=== PATIENT | female | born 1980 | race Caucasian/White ===

== ENCOUNTER 2023-07-10 11:36 | Emergency (ER) | payer OTHER, SELFPAY ==
[2023-07-10 11:41] VITALS: BP 136/85; PULSE 106; RESP 20; TEMP 36.2; O2SAT 99
== END 2023-07-10 13:02 | disposition left against medical advice (07) ==
PROVIDERS: PCP Family Medicine
DX: N92.0 Excessive and frequent menstruation with regular cycle (principal)
CPT/HCPCS: 99199

== ENCOUNTER 2023-08-08 15:35 | Emergency (ER) | payer OTHER, SELFPAY ==
--- NOTE | ~2023-08-08 | CT_ITS ---
EXAMINATION: CT abdomen pelvis w con INDICATION: Abdominal pain TECHNIQUE: Computed tomographic images of the abdomen and pelvis were obtained after the administrati on of 100 cc of Omnipaque 350 intravenous contrast. The dose-length product (DLP) was 375.06 mGy-cm. Automated exposure control and iterative reconstruction technique were employed. COMPARISON: 09/26/2008 FINDINGS: Minimal dependent atelectasis is present in the lung bases. The heart size is normal. The l iver, spleen, pancreas, gallbladder, and adrenal glands are normal. The kidneys are unremarkable. No pathologically enlarged abdominal or pelvic lymph nodes are identified. No free intraperitoneal gas o r evidence of bowel obstruction. Surgical clips near the cecum likely reflect prior appendectomy. IMPRESSION: 1. No CT correlate for the patient's symptoms. Reviewed, dictated and finalized at location F.
[2023-08-08 15:43] VITALS: BP 143/93; PULSE 96; RESP 17; TEMP 36.9; O2SAT 98
[2023-08-08 15:56] LABS: Basophils Absolute Auto 0.1 K/mm3 (0.0-0.1); Basophils Percent Auto 0.6 % (0.2-1.2); Eosinophils Absolute Auto 0.6 K/mm3 (0-0.3); Eosinophils Percent Auto 3.6 % (0-4.4); Hematocrit 40.8 % (37.0-47.0); Hemoglobin 13.2 g/dL (12.0-15.0); Immature Granulocyte Absolute 0.09 K/mm3 (0.00-0.031); Immature Granulocyte Percent A 0.6 % (0-0.5); Lymphocytes Absolute Auto 4.67 K/mm3 (0.9-3.2); Lymphocytes Percent Auto 28.9 % (18.3-44.2); Mean Corpuscular HGB Conc 32.4 g/dl (32-36); Mean Corpuscular Hemoglobin 31.7 pg (26-34); Mean Corpuscular Volume 98.1 fl (80-100); Mean Platelet Volume 9.1 fl (7.4-10.4); Monocytes Percent Auto 6.3 % (2.6-8.5); Neutrophils Absolute Auto 9.7 K/mm3 (1.3-6.7); Platelet Count Result 410 k/mm3 (150-375); Red Blood Count 4.16 M/mm3 (4.2-5.4); Red Cell Distribution Width 13.2 % (11.5-14.5); White Blood Count 16.2 K/mm3 (4.5-10.0)
[2023-08-08 16:03] LABS: Alanine Aminotransferase 16 U/L (6-35); Albumin Level 4.7 g/dL (3.5-5.1); Alkaline Phosphatase 110 U/L (38-126); Anion Gap 7 mmol/L (8-16); Aspartate Amino Transferase 24 U/L (14-36); Bilirubin,Total 0.4 mg/dL (0.2-1.3); Blood Urea Nitrogen 10 mg/dL (7-17); Calcium 9.4 mg/dL (8.4-10.2); Carbon Dioxide 25 mmol/L (22-30); Chloride 109 mmol/L (98-107); Estimated CRCL calculation 70 ml/min; Estimated Glomerular Filt Rate > 60; Glucose 101 mg/dL (65-110); Lipase 92 U/L (23-300); Potassium 3.4 mmol/L (3.4-5.0); Sodium 141 mmol/L (137-145)
[2023-08-08 16:19] LABS: Appearance Urine Cloudy (Clear); Bacteria Urine Rare /hpf; Bilirubin Urine Negative (Negative); Blood Urine 3+ (Negative); Calcium Oxalate Crystals Urine Present /hpf; Color Urine Yellow (Yellow); Glucose Urine UA Negative (Negative); Ketones Urine Trace mg/dL (Negative); Leukocyte Esterase Ur Negative LEU/UL (Negative); Need Manual Microscopic Reviewed; Nitrate Urine Negative (Negative); Non Pathogenic Casts 0-2; Protein Urine Trace mg/dL (Negative); RBC Urine >100 /hpf (0-2); Squamous Epithelial Cell Urine Few /hpf (Few); Urobilinogen Urine 0.2 mg/dL (<2.0); pH Urine 5.5 (5.0-9.0)
[2023-08-08 16:20] LABS: Specific Grav Ur 1.038 (1.001-1.035)
[2023-08-08 16:21] LABS: Add Urine Microscopic? YES
--- NOTE | 2023-08-08 16:49 | ED.ABDPAIN ---
HPI - Abdominal Pain General Chief Complaint: Abdominal Pain Stated Complaint: abdominal cramping Time Seen by Provider: 08/08/23 16:46 Source: patient and family Mode of arrival: ambulatory Limitations: no limitations History of Present Illness HPI narrative: 43 years old white female came to the emergency room with abdominal pain that started 2 hours prior to arrival. Patient started her menstrual cycle 2 days ago. History of heavy vaginal bleeding scheduled for hysterectomy by Dr. MORRIS September 04. Patient been having abdominal pain for 6 months. History of bilateral tubal ligation, appendectomy, does not take medicine at home, she smokes cigarettes, denies drug or alcohol abuse Related Data Patient : No Home Medications Medication Instructions Recorded Confirmed No Home Medications 06/02/23 06/02/23 Allergies Allergy/AdvReac Type Severity Reaction Status Date / Time ibuprofen AdvReac Mild Diarrhea Verified 06/17/23 14:43 Review of Systems Review of Systems: All systems reviewed & are unremarkable except as noted in HPI and below PMFSH Surgical History Surgical History H/O tubal ligation Hx of appendectomy Hx of tonsillectomy Family History Family History Grandparent Diabetes mellitus Mother Heart disease Father Hypertension Social History Social History Smoking status: Current every day smoker Alcohol intake: current Alcohol use details: occasional Substance use: never Lack of Transportation: No Lack of Food: Never True Current Housing: I Have Housing Concerned About Future Housing: No Difficulty Paying Gas/Electric Bills: No Difficulty Paying for Meds: YES Currently Unemployed: YES Education: High School Diploma/GED Difficulty w/ Childcare or Family Care: No Living arrangements: with family Occupation/Education: occupation Additional occupation/education comments: door dasher Gender identity (if verbalized by the patient): Female Sexual Orientation (if Verbalized by the Patient): Straight or Heterosexual Exam Narrative: General appearance: Well-developed, well-nourished Skin: Normal color Head: Normocephalic, nontraumatic Eyes: Clear conjunctiva ENT: Oropharynx normal, ears normal, nose normal Neck: Supple, nontender Chest and respiratory: Airway patent, no respiratory distress, no accessory muscle use Heart: Regular rate/rhythm Abdomen: Soft, severe diffuse abdominal pain with guarding , no organomegaly, quiet bowel sounds Vascular: Normal peripheral pulses, normal capillary refill. Musculoskeletal: Normal range of motion, nontender back Neurologic: Alert and oriented ?3, IRRIGATION SPECIALIST is normal as tested, no gross motor deficit Course Reevaluation(s) Reevaluation #1: Patient had some improvement after Dilaudid 0.5 mg IV twice. Date: 08/08/23 Time: 18:38 Vital Signs Vital signs: Vital Signs Temperature 36.9 C 08/08/23 15:43 Pulse Rate 96 08/08/23 15:43 Respiratory Rate 17 08/08/23 15:43 Blood Pressure 143/93 H 08/08/23 15:43 Pulse Oximetry 98 08/08/23 15:43 Oxygen Delivery Room Air 08/08/23 15:43 Temperature 36.9 C 08/08/23 15:43 Pulse Rate 96 08/08/23 15:43 Respiratory Rate 17 08/08/23 15:43 Blood Pressure 143/93 H 08/08/23 15:43 Pulse Oximetry 98 08/08/23 15:43 Oxygen Delivery Room Air 08/08/23 15:43 MDM - Abdominal Pain MDM Narrative Medical decision making narrative: Patient presents with generalized abdominal pain which started 6 months ago, sched
[2023-08-08] MEDS: SODIUM CHLORIDE 0.9% IV 1,000 ML 999 ML IV CONT (17:14)
[2023-08-08] MEDS: ONDANSETRON INJ 4 MG/2 ML VIAL IV PUSH (17:14)
[2023-08-08] MEDS: HYDROmorphone HCL INJ (*CRX) 1 MG/ML SYR 0.5 MG IV PUSH ×2 (17:14→18:05)
[2023-08-08] MEDS: KETOROLAC 30 MG/ML VIAL (*BKC) IV PUSH (18:48)
[2023-08-08 18:51] VITALS: BP 128/84; PULSE 85; RESP 18; O2SAT 97
== END 2023-08-08 19:26 | disposition home or self-care (01) ==
LOC: ANHED 16:49
PROVIDERS: Emergency Provider Emergency Medicine; PCP Student in an Organized Health Care Education/Training Program
DX: R10.84 Generalized abdominal pain (principal); N94.6 Dysmenorrhea, unspecified; F17.200 Nicotine dependence, unspecified, uncomplicated
CPT/HCPCS: 36415; 74177; 80053; 81001; 83690; 85025; 87077; 87086; 87088; 96361; 96374; 96375; 96376; 99284; J1170; J1885; J2405; J7030; Q9967

== ENCOUNTER 2023-08-29 09:40 | Outpatient (CLI) | payer OTHER, SELFPAY | END 2023-08-29 09:41 | disposition home or self-care (01) | LOC: ANHSURGERY 09:45 | PROVIDERS: Visit Provider Student in an Organized Health Care Education/Training Program | DX: N93.9 Abnormal uterine and vaginal bleeding, unspecified (principal); Z01.818 Encounter for other preprocedural examination | CPT/HCPCS: 36415; 86850; 86900; 86901 ==

== ENCOUNTER 2023-09-04 02:20 | Day surgery (SDC) | payer OTHER, SELFPAY ==
[2023-08-25 16:25] VITALS: BMI 25.2
--- NOTE | 2023-08-25 16:52 | PC.NURSE ---
Report to the Outpatient Waiting Room, entrance under the green pavilion located off [facility], at 1000 on 09-04-23. Planned Procedure Time: 1200. Time changes happen often and if your time is changed the preop area will call you the afternoon before. - You and your visitor will be asked to self-screen and do not enter if you have any COVID symptoms. - A mask is optional within the hospital at this time. Patients may have clear liquids (water, carbonated beverages, clear teas, apple juice) until 3 hours prior to surgery with a maximum of 20 ounces. 0900 - No food from midnight until time of surgery - Infants may have breast milk until 4 hours before surgery, formula 6 hours prior to surgery. - Children will be allowed to drink immediately following surgery. If applicable, please bring a bottle or sippy cup to assist with drinking. Juice, water, soda, and popsicles are readily available. For infants on formula, please bring formula the day of surgery. Pacifiers are allowed. Take the following medications with a SIP of water the morning of surgery: Tylenol if needed DO NOT STOP ANY OF YOUR OTHER PRESCRIPTION MEDICATIONS PRIOR TO SURGERY ?EXCEPT THE FOLLOWING Medications to discontinue per physician: N/A Please no make-up, nail sudanese, hairspray, perfume, deodorant, or body powder the day of surgery. No jewelry (including any body piercings) or valuables the day of surgery, leave them at home. Please take a shower or bath the night before, or the morning of, surgery with an antibacterial soap. Wear comfortable, loose fitting clothing. Children are encouraged to wear pajamas. - Jewelry must be removed prior to entering the operating room. Rings and piercings that are not removed may be cut off. - The hospital will not accept responsibility for valuables. - Please leave all valuables, including medications, at home the day of surgery. If you are going home after surgery, a licensed coach driver must drive you home. - NO public transportation without another adult if you receive anesthesia. - We recommend that an adult stay with you for 24 hours following discharge. - We also recommend that you do not drive, make important decision, drink alcoholic beverages, or take any drugs that were not prescribed by your health care provider for at least 24 hours after your discharge time. For Pediatric surgeries, we recommend two adults accompany the child home. Follow any additional instructions given to you from your surgeon. If you or anyone in your household have experienced Covid symptoms in the past week, please notify your surgeon or the nurse liaison at the phone number below for possible testing. Telephone instructions given to Cheryl Saab and asked if any additional questions and then verbalized understanding. Patient advised to call surgeon office or pre surgery nurse liaison [phone] if any additional questions.
--- NOTE | 2023-09-03 13:26 | PM.IMHP ---
H&P: HPI History of Present Illness Date/Time: 09/03/23 13:26 Chief Complaint: Abnormal Narrative: 43-year-old female who presents for robotic assisted hysterectomy for abnormal uterine bleeding and pelvic pain.? Patient complaining of pelvic pain and associated heavy menses since her tubal ligation.? Patient has tried multiple forms of hormonal contraception in the past.? Patient is interested in hysterectomy Review of Systems Cardiovascular: Cardiovascular: Denies chest pain, Denies leg edema, Denies palpitations, Denies dyspnea and Denies dyspnea on exertion Respiratory: Respiratory: Denies cough, Denies dyspnea and Denies dyspnea on exertion Gastrointestinal: Gastrointestinal: Denies abdominal pain, Denies constipation, Denies diarrhea, Denies nausea and Denies vomiting Genitourinary: Genitourinary: Denies hematuria, Denies urinary frequency, Denies dysuria, Denies pelvic pain, Denies urinary incontinence and Denies vaginal discharge Neurologic: Reports system reviewed and no additional complaints, except as documented Psychiatric: Psychiatric: Reports no additional psychiatric complaints Endocrine: Endocrine: Denies palpitations PMFSH Surgical History Surgical History H/O tubal ligation Hx of appendectomy Hx of tonsillectomy Family History Family History Grandparent Diabetes mellitus Mother Heart disease Father Hypertension Social History Social History Smoking packs per day: 0.5 Smoking cigarettes per day: 10.0 Years smoked: 13 Smoking pack-years: 6.50 Smoking status: Current every day smoker Tobacco type: cigarettes Second hand tobacco smoke exposure: Yes Alcohol intake: current Alcohol use details: occasionally Substance use: never Substance use type: does not use Lack of Transportation: No Lack of Food: Never True Current Housing: I Have Housing Concerned About Future Housing: No Difficulty Paying Gas/Electric Bills: No Difficulty Paying for Meds: YES Currently Unemployed: YES Education: High School Diploma/GED Difficulty w/ Childcare or Family Care: No Living arrangements: with family Occupation/Education: occupation Additional occupation/education comments: door dasher Gender identity (if verbalized by the patient): Female Sexual Orientation (if Verbalized by the Patient): Straight or Heterosexual Spiritual care concerns: No Meds Home Medications and Allergies Home Medications Medication Instructions Recorded Confirmed Type acetaminophen 325 mg capsule 650 mg PO Q4-6H PRN Pain (Scale 08/25/23 08/25/23 History (Tylenol) Score 1-3) diphenhydramine HCl 50 mg capsule 50 mg PO DAILY PRN hay fever 08/25/23 08/25/23 History Allergies Allergy/AdvReac Type Severity Reaction Status Date / Time latex Allergy Mild Rash Verified 08/25/23 16:21 ibuprofen AdvReac Mild Diarrhea Verified 06/17/23 14:43 Exam Const: General: no acute distress Eyes: EOM: EOMs intact bilaterally Neck: Neck: supple Thyroid: thyroid normal Chest: Breast/axilla inspection: normal inspection of the breasts Breast/axilla palpation: normal palpation of the breasts, normal palpation of the axillae and no axillary lymphadenopathy Resp: Effort & Inspection: normal respiratory effort Auscultation: clear to auscultation bilaterally Cardio: Rate: regular rate Rhythm: regular rhythm GI: Inspection: non-distended GI Palp: Yes Soft to palpation, No Tenderness to palpation present (GI) and No Guarding due to palpation present (GI) Auscultation: normal bowel sounds : General: No bladder normal to palpation External Female Exam: normal external appearance Speculum Exam - Vagina: normal vaginal discharge and No vaginal bleeding Speculum Exam - Cervix: nontender Bimanual exam- vagina & uterus: No bladder
[2023-09-04] VITALS (12 sets, daily range): BP systolic 115–149; BP diastolic 77–97; PULSE 73–117; RESP 12–18; TEMP 36.2–37; O2SAT 95–100
[2023-09-04] MEDS: ACETAMINOPHEN 500 MG TABLET 1000 MG PO (10:02)
[2023-09-04 10:36] LABS: White Blood Count 15.7 K/mm3 (4.5-10.0)
[2023-09-04] MEDS: LACTATED RINGERS 1,000 ML 30 ML IV CONT ×2 (10:39→13:50)
[2023-09-04] MEDS: KETOROLAC 15 MG/ML VIAL (*BKC) IV PUSH (10:40)
--- NOTE | 2023-09-04 11:13 | WPDHPUPDATE1 ---
History and Physical Update Update Date/Time: 09/04/23 11:13 History and Physical has been reviewed, including an updated exam of the patient. There are NO changes in the patient's condition. Risks, benefits, and alternatives have been discussed and questions answered. Patient agrees to proceed with procedure.
--- NOTE | 2023-09-04 11:25 | SUR.PREOP ---
Discussed elevated WBC 15.[address] Solorio. No other symptoms to account for this. No new orders.
--- NOTE | 2023-09-04 11:35 | WPDANESEPPF ---
Anes - Initial Pre Proc Eval Procedure: Operation Date: 09/04/23 12:00 Proposed Procedures p Robotic Assisted Total Laparoscopic Hysterectomy with Bilateral Salpingectomy - Jerardo Solorio MD Date/Time: 09/04/23 11:35 Surgeon: Jerardo Solorio MD Pre Op Diagnosis: abnormal uterine bleeding Patient Data Age: 43 Gender: F Height: 1.57 m Weight: 65.7 kg Last Vital Signs Temp 98.1 F 09/04/23 10:33 Pulse 103 H 09/04/23 10:33 Resp 16 09/04/23 10:33 BP 130/80 09/04/23 10:33 Pulse Ox 98 09/04/23 10:33 O2 Del Method Room Air 09/04/23 10:33 Allergies Allergy/AdvReac Type Severity Reaction Status Date / Time latex Allergy Mild Rash Verified 09/04/23 09:59 ibuprofen AdvReac Mild Diarrhea Verified 09/04/23 09:59 Home Medications Medication Instructions Recorded Confirmed Type acetaminophen 325 mg capsule 650 mg PO Q4-6H PRN Pain (Scale 08/25/23 09/04/23 History (Tylenol) Score 1-3) diphenhydramine HCl 50 mg capsule 50 mg PO DAILY PRN hay fever 08/25/23 09/04/23 History Laboratory Tests 09/04/23 10:26 WBC 15.7 H K/mm3 (4.5-10.0) Patient hx anesthesia problems: none Family hx anesthesia problems: none Results Review: All pre-operative results and documents have been reviewed as part of the pre-operative evaluation. [facility] Surgical History Surgical History H/O tubal ligation Hx of appendectomy Hx of tonsillectomy Family History Family History Grandparent Diabetes mellitus Mother Heart disease Father Hypertension Social History Social History Smoking packs per day: 0.5 Smoking cigarettes per day: 10.0 Years smoked: 13 Smoking pack-years: 6.50 Smoking status: Current every day smoker Tobacco type: cigarettes Second hand tobacco smoke exposure: Yes Alcohol intake: current Alcohol use details: occasionally Substance use: never Substance use type: does not use Lack of Transportation: No Lack of Food: Never True Current Housing: I Have Housing Concerned About Future Housing: No Difficulty Paying Gas/Electric Bills: No Difficulty Paying for Meds: YES Currently Unemployed: YES Education: High School Diploma/GED Difficulty w/ Childcare or Family Care: No Living arrangements: with family Occupation/Education: occupation Additional occupation/education comments: door dasher Gender identity (if verbalized by the patient): Female Sexual Orientation (if Verbalized by the Patient): Straight or Heterosexual Spiritual care concerns: No Anes - Eval Final PreProcedure Day of Procedure 09/04/23 11:35 Patient weight: normal Heart: regular rate and rhythm Lungs: clear to auscultation Airway: Mallampati scale class II Neurological: alert and oriented Last oral intake: >/= 8 hours ASA classification: II Emergent: no Anesthetic plan: proceed Anesthesia type and monitoring: general ETT and standard monitoring Results Review: All pre-operative results and documents have been reviewed as part of the pre-operative evaluation. Informed Consent: The patient's anesthetic plan and its attendant risks and benefits were discussed with the patient/family/POA. Questions were solicited and answers provided to the satisfaction of the patient/family/POA.
[2023-09-04] MEDS: ceFAZolin 2 GM/D5W 50 ML 2 GM/50 ML BAG IVPB (12:18)
[2023-09-04] MEDS: metroNIDAZOLE 500 MG/ISO 100ML 500 MG/100 ML BAG 100 MG IVPB (12:35)
[2023-09-04] MEDS: LIDO 1%/EPINEPHRINE 1:100,000 20 ML VIAL INFILTRATE (13:08)
--- NOTE | 2023-09-04 13:28 | W.PM.PROC2 ---
Procedure Note - Detailed Date of Procedure 09/04/23 Pre-op Diagnosis abnormal uterine bleeding Post-op Diagnosis Same Procedure Performed robotic assisted total laparoscopic hysterectomy Surgeon Jerardo Solorio MD Anesthesia General Indications AUB pelvic pain Findings Gunpowder lesions noted on the uterine serosa, normal appearing ovaries bilaterally, bilateral fallopian tubes surgically absent Description of Procedure After the patient was appropriately consented she was taken to the operating room where she was transferred to the table in a dorsal supine position. General anesthesia was then induced with endotracheal intubation. The patient was transferred to a dorsal lithotomy position using adjustable yellow-fin stirrups. Her position was adjusted for appropriate support of her lower back and lower extremities. The patient was prepped and draped. A transurethral weir catheter was place. The cervix was sequentially dilated and a ROXIE uterine manipulator placed in typical fashion about a 3.5 cm KIMBERLY ring. Gloves were changed. After confirmation of a functioning orogastric tube, lidocaine was injected at Gauthier's point in the LUQ and a 5mm incision was made. A 5mm Optiview trocar was then inserted into the abdominal cavity under direct visualization and done so without complication. The abdomen was then insufflated with approximately 2-3L of CO2 establishing a pneumoperitoneum and the patient was placed in Trendelenburg position. Just above the umbilicus in the midline, a 8 mm incision made after injection of lidocaine and a 8 mm bladeless trocar advanced into the abdominal cavity under direct visualization without incident. We subsequently placed two robotic ports in a similar fashion, one in the left mid-quadrant and one in the right, 10cm lateral to the midline port. The robot was then docked. Attention was turned to the left pelvis. The left fallopian tube was surgically absent. The utero-ovarian ligament was desiccated and transected, as was the round ligament. The posterior peritoneal leaf was taken down to the KIMBERLY ring. The anterior leaf was developed as well as the start of the bladder flap. The left uterine artery was then skeletonized and desiccated and transected just above the level of the KIMBERLY ring. Attention was turned to the right pelvis. The right fallopian tube was also surgically absent. The utero-ovarian ligament was desiccated and transected, as was the round ligament. The posterior peritoneal leaf was taken down to the KIMBERLY ring. The anterior leaf was developed as well as the start of the bladder flap. The right uterine artery was then skeletonized and desiccated and transected just above the level of the KIMBERLY ring. The bladder was then further dissected inferiorly over the level of the KIMBERLY ring. A circumferential colpotomy was made using monopolar current. The uterus, cervix, bilateral tubes were then delivered transvaginally. I then placed a single figure of eight suture of 0-vicryl in the left corner of the vaginal cuff. I then re-approximated the colpotomy with a running #1 PDO Quill suture in 2 layers. Following this dissection, the abdomen and pelvis were copiously irrigated and all surgical sites found to be hemostatic. Skin sites were reapproximated with 4-0 Vicryl in a subcuticular fashion. Steri-Strips were placed. The patient tolerated the procedure well. Sponge, needle and instrument counts were correct x 2 and the patient was taken to recovery in stable condition. Ancef and Flagyl were given for antimicrobial prophylaxis. The patient had SCD's on for VTE prophylaxis during the entire procedure. Estimated Blood Loss 20 Drains No Packing No Pathology Yes (uterus and cervix) Complications No immediate complications Condition Stable Disposition PACU [facility] Billing Surgery - Charge Forward: Surgery Billing
[2023-09-04] MEDS: fentaNYL CITRATE INJ (*CRX) 100 MCG/2 ML VIAL 25 MCG IV PUSH ×5 (14:09→14:27)
[2023-09-04] MEDS: HYDROmorphone HCL INJ (*CRX) 1 MG/ML SYR 0.5 MG IV PUSH ×2 (15:08→15:23)
[2023-09-04] MEDS: DEXTROSE 5%/0.45% SOD CHL 1,000 ML 125 ML IV CONT (16:13)
[2023-09-04] MEDS: KETOROLAC 30 MG/ML VIAL (*BKC) IV PUSH (16:15)
--- NOTE | 2023-09-04 16:56 | PC.NURSE ---
This patient, Cheryl Saab, was received from PACU on 09/04/23 at 1547. Patient/family oriented to unit policies and routines
[2023-09-04] MEDS: HYDROcodone/acetaminophen (*CRX) 10-325 MG TABLET 1 TAB PO ×2 (18:37→21:20)
[2023-09-04] MEDS: SIMETHICONE 80 MG TAB.CHEW PO (19:35)
[2023-09-04] MEDS: SENNA/DOCUSATE SODIUM TABLET 2 TAB PO (21:20)
[2023-09-05] MEDS: HYDROcodone/acetaminophen (*CRX) 10-325 MG TABLET 1 TAB PO ×4 (00:09→09:56)
[2023-09-05] MEDS: SIMETHICONE 80 MG TAB.CHEW PO ×2 (03:57→06:55)
[2023-09-05 04:10] VITALS: BP 133/83; PULSE 109; RESP 18; TEMP 37.1; O2SAT 96
[2023-09-05] MEDS: ONDANSETRON INJ 4 MG/2 ML VIAL IV PUSH (05:18)
[2023-09-05 05:34] LABS: Basophils Absolute Auto 0.1 K/mm3 (0.0-0.1); Basophils Percent Auto 0.2 % (0.2-1.2); Hematocrit 37.8 % (37.0-47.0); Hemoglobin 12.3 g/dL (12.0-15.0); Immature Granulocyte Absolute 0.12 K/mm3 (0.00-0.031); Immature Granulocyte Percent A 0.5 % (0-0.5); Lymphocytes Absolute Auto 2.56 K/mm3 (0.9-3.2); Lymphocytes Percent Auto 11.7 % (18.3-44.2); Mean Corpuscular HGB Conc 32.5 g/dl (32-36); Mean Corpuscular Hemoglobin 31.5 pg (26-34); Mean Corpuscular Volume 96.9 fl (80-100); Mean Platelet Volume 9.9 fl (7.4-10.4); Monocytes Absolute Auto 1.6 K/mm3 (0.1-0.6); Monocytes Percent Auto 7.2 % (2.6-8.5); Neutrophils Absolute Auto 17.5 K/mm3 (1.3-6.7); Neutrophils Percent Auto 80.4 % (45.5-73.1); Platelet Count Result 346 k/mm3 (150-375); Red Cell Distribution Width 13.6 % (11.5-14.5); White Blood Count 21.9 K/mm3 (4.5-10.0)
[2023-09-05 05:50] LABS: Anion Gap 9 mmol/L (8-16); Blood Urea Nitrogen 6 mg/dL (7-17); Calcium 8.8 mg/dL (8.4-10.2); Carbon Dioxide 23 mmol/L (22-30); Chloride 106 mmol/L (98-107); Estimated CRCL calculation 107 ml/min; Estimated Glomerular Filt Rate > 60; Glucose 117 mg/dL (65-110); Potassium 3.4 mmol/L (3.4-5.0); Sodium 138 mmol/L (137-145)
[2023-09-05 07:50] VITALS: BP 139/83; PULSE 104; RESP 18; TEMP 37.4; O2SAT 99
--- NOTE | 2023-09-05 08:14 | P.PNAN_ITS ---
Anes - Prog Note Post-Op Date/Time: 09/05/23 08:14 Cardiovascular status: normal Respiratory status: normal Airway patency: baseline Mental status: baseline Post-Op hydration status: normal Vital Signs: Last Vital Signs Temp 37.1 C 09/05/23 04:10 Pulse 109 H 09/05/23 04:10 Resp 18 09/05/23 04:10 BP 133/83 09/05/23 04:10 Pulse Ox 96 09/05/23 04:10 O2 Del Method Room Air 09/05/23 04:10 O2 Flow Rate 2 09/04/23 15:30 Pain Score (VAS): 5 I/O: Intake & Output 09/04/23 09/05/23 09/05/23 23:59 07:59 15:59 Intake Total 660 200 Output Total 1425 800 Balance -765 -600 Laboratory Tests 09/05/23 04:01 09/05/23 04:01 09/04/23 09/05/23 10:26 04:01 WBC 15.7 H 21.9 H RBC 3.90 L Hgb 12.3 Hct 37.8 MCV 96.9 MCH 31.5 MCHC 32.5 RDW 13.6 Plt Count 346 MPV 9.9 Immature Gran % (Auto) 0.5 Neut % (Auto) 80.4 H Lymph % (Auto) 11.7 L [place] % (Auto) 7.2 Eos % (Auto) 0.0 Baso % (Auto) 0.2 Lymph # (Auto) 2.56 [place] # (Auto) 1.6 H Eos # (Auto) 0.0 Baso # (Auto) 0.1 Abs Immat Gran (auto) 0.12 H Absolute Neuts (auto) 17.5 H Absolute Nucleated RBC 0.0 Nucleated RBC % 0.0 Sodium 138 Potassium 3.4 Chloride 106 Carbon Dioxide 23 Anion Gap 9 BUN 6 L Creatinine 0.50 L Estim Creat Clear Calc 107 Estimated GFR > 60 Glucose 117 H Calcium 8.8 Post-procedural complaints: nausea Patient Feedback: Patient satisfied with anesthetic care.
--- NOTE | 2023-09-05 11:08 | PM.DS ---
DS: Admitting Diagnosis Discharge Date 09/05/23 Admitting Diagnosis AUB pelvic pain DS: Discharge Diagnosis Discharge Diagnosis (1) Pelvic pain: Code(s): R10.2 - Pelvic and perineal pain Status: Acute (2) Abnormal uterine bleeding (AUB): Code(s): N93.9 - Abnormal uterine and vaginal bleeding, unspecified Status: Acute DS: Summary Hospital Course Hospital Course: Nicki Ferguson was admitted after robotic assisted total laparoscopic hysterectomy and bilateral salpingo-oophorectomy for abnormal uterine bleeding. The above procedure was performed with no complications. She is doing well post op. She states her pain is well controlled with PO medications. She reports minimal bleeding. She is ambulating up to the chair. Her weir catheter was removed. She is tolerating PO without N/V. She reports passing flatus. Status at Discharge Overall status at discharge: patient is progressing back to baseline Time Spent with Patient Time attestation: Total time spent providing and/or coordinating discharge services: Time spent: Less than 30 minutes Exam Const: General: comfortable and no acute distress Limitations: no limitations Resp: Effort & Inspection: normal respiratory effort Auscultation: clear to auscultation bilaterally Cardio: Rate: regular rate Rhythm: regular rhythm GI: Inspection: non-distended GI Palp: Yes Soft to palpation, Yes Tenderness to palpation present (GI) (milder tenderness to deep palpation) and No Guarding due to palpation present (GI) Auscultation: normal bowel sounds Other: incisions C/D/I covered with dermabond Urinary Catheter: Urinary Catheter: urine clear Skin: General skin exam: normal color Extrem: General: normal to inspection Psych: Mental Status: mental status grossly normal Affect: normal affect DS: Data Data Completed and Pending Pending studies at discharge: Pending at discharge 09/04/23 13:12 Surgical [PTH] Routine 09/04/23 13:15 Surgical [PTH] Routine Labs on day of discharge: Labs from last 24 hours 09/05/23 04:01 WBC 21.9 H RBC 3.90 L Hgb 12.3 Hct 37.8 MCV 96.9 MCH 31.5 MCHC 32.5 RDW 13.6 Plt Count 346 MPV 9.9 Immature Gran % (Auto) 0.5 Neut % (Auto) 80.4 H Lymph % (Auto) 11.7 L [place] % (Auto) 7.2 Eos % (Auto) 0.0 Baso % (Auto) 0.2 Lymph # (Auto) 2.56 [place] # (Auto) 1.6 H Eos # (Auto) 0.0 Baso # (Auto) 0.1 Abs Immat Gran (auto) 0.12 H Absolute Neuts (auto) 17.5 H Absolute Nucleated RBC 0.0 Nucleated RBC % 0.0 Sodium 138 Potassium 3.4 Chloride 106 Carbon Dioxide 23 Anion Gap 9 BUN 6 L Creatinine 0.50 L Estim Creat Clear Calc 107 Estimated GFR > 60 Glucose 117 H Calcium 8.8 Discharge Plan Discharge Patient Disposition: Home, Self-Care Patient Instructions: Laparoscopic Hysterectomy (DC) Stand Alone Forms: General Discharge Instructions Follow-up/Referrals: Jerardo Solorio MD [Physician] - Discharge Medications: New oxycodone-acetaminophen 5-325 mg tablet 1 tablet PO Q6H PRN (Reason: pain) Qty: 28 0RF ibuprofen 600 mg tablet 600 mg PO Q6H PRN (Reason: pain) Qty: 30 0RF ondansetron 4 mg tablet,disintegrating 4 mg PO Q6H Qty: 30 0RF Continued acetaminophen [Tylenol] 325 mg Capsule 650 mg PO Q4-6H PRN (Reason: Pain (Scale Score 1-3)) diphenhydramine HCl 50 mg Capsule 50 mg PO DAILY PRN (Reason: hay fever)
== END 2023-09-05 12:25 | disposition home or self-care (01) ==
LOC: ANHSURGERY 09:46 → ANHOB2 15:42
PROVIDERS: Visit Provider Student in an Organized Health Care Education/Training Program
PROC: (CPT 58570; principal; 2023-09-04 12:00)
DX: N93.9 Abnormal uterine and vaginal bleeding, unspecified (principal); N72 Inflammatory disease of cervix uteri; N87.9 Dysplasia of cervix uteri, unspecified; N88.8 Other specified noninflammatory disorders of cervix uteri; R10.2 Pelvic and perineal pain; Z23 Encounter for immunization; F17.210 Nicotine dependence, cigarettes, uncomplicated
CPT/HCPCS: 58570; S2900; 36415; 80048; 85025; 85048; 88307; 90471; 90686; 99199; A9270; G0008; J0690; J1100; J1170; J1836; J1885; J2250; J2405; J2704; J3010; J7120

== ENCOUNTER 2024-02-21 16:34 | Emergency (ER) | payer OTHER, SELFPAY ==
[2024-02-21 16:35] VITALS: BP 128/83; PULSE 106; RESP 18; TEMP 36.7; O2SAT 97
--- NOTE | 2024-02-21 17:48 | PC.NURSE ---
patient reports that she is leaving to go home. patient walked out of ED without difficulty and in no distress.
== END 2024-02-21 18:55 | disposition left against medical advice (07) ==
LOC: ANHED 17:53
DX: T14.90XA Injury, unspecified, initial encounter (principal)
CPT/HCPCS: 99199